=== PATIENT | male | born 1990 | race Caucasian/White ===

== ENCOUNTER 2018-03-19 12:13 | Emergency (ER) | payer BC ==
[2018-03-19] MEDS ORDERED: Ketorolac 60 MG/2 ML SDV IM ONE (13:20)
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
--- NOTE | 2018-03-19 14:20 | CR ---
EXAMINATION: Left thumb HISTORY: Injury COMPARISON: None TECHNIQUE: 3 views FINDINGS/IMPRESSION: There is partial amputation and fracture of the distal first phalanx with a smal l osseous defect involving the tuft. The remaining osseous structures and joint spaces appear intact. Bone mineralization is otherwise normal.
[2018-03-19] MEDS ORDERED: Lidocaine/EPINEPHrine/Tetracaine Soln 1 ML ONE (14:24)
[2018-03-19] MEDS ORDERED: Lidocaine/EPINEPHrine/Tetracaine Soln 1 ML TOP ONE (14:26)
[2018-03-19] MEDS ORDERED: Ondansetron 4 MG Tab.DIS PO ONE (14:33)
[2018-03-19] MEDS ORDERED: Morphine 4 MG/ML Syringe IM ONE (14:33)
== END 2018-03-19 15:40 | disposition home or self-care (01) ==
LOC: MW.ED 12:13
DX: S62.502B Fracture of unspecified phalanx of left thumb, initial encounter for open fracture (principal); W23.0XXA Caught, crushed, jammed, or pinched between moving objects, initial encounter
CPT/HCPCS: 73140; 96372; 99283; A9270; J1885; J2270